=== PATIENT | female | born 1980 | race Hispanic/Latino ===

== ENCOUNTER 2021-10-30 21:07 | Emergency (ER) | payer OTHER, SELFPAY ==
--- NOTE | 2021-10-30 21:12 | ED_ITS ---
HPI - Eye Problem General Chief complaint: Eye Problems Stated complaint: Both eyes infected x2 weeks Time Seen by Provider: 10/30/21 21:11 History of Present Illness HPI Narrative: 41-year-old female nonsmoker presents with a chief complaint of 2 weeks of slowly worsening upper lid pain and swelling. She has a history of styes and had been using warm compresses over the past 2 weeks but her symptoms have been gradually worsening and she now has for painful. Eyes, 2 on each of her upper eyelids. She was able to squeeze a small amount of pus out of 1 on her left eye earlier today. She went to see her primary care provider who prescribed a few prescriptions including oral antibiotics and even drops. She was unable to get these filled at her local pharmacy and was told that if she could not get her antibiotics that she would need to present to the emergency department for t reatment. She denies any blurred vision, redness of her skull air, drainage or other symptoms such as fever, chills nor nausea or vomiting. Related Data Previous Rx's Medication Instructions Recorded doxycycline hyclate 100 mg capsule 100 mg PO BID #20 cap 10/30/21 Allergies Allergy/AdvReac Type Severity Reaction Status Date / Time lamotrigine Allergy Verified 10/30/21 21:26 Penicillins Allergy Verified 10/30/21 21:26 Review of Systems Review of Systems Narrative: GENERAL: See HP HEENT: See HP RESPIRATORY: Denies dyspnea, cough, wheezing, hemoptysis, sputum. CARDIOVASCULAR: Denies chest pain, palpitations, orthopnea, edema, GASTROINTESTINAL: Denies nausea, vomiting, abdominal pain, diarrhea, constipation, melena. : Denies dysuria, frequency, incontinence, hematuria, urinary retention. MUSCULOSKELETAL: denies weakness, joint pain, or bony pain SKIN: See HP NEUROLOGIC: Denies weakness, headache, numbness, change in speech, confusion, seizures, incoordination. PSYCHIATRIC: No concerning psychosocial issues. 12 point review of systems is negative except for those stated above Patient History Social History Smoking Status: Never smoker Exam Narrative Exam Narrative: GEN: AOx3 and in mild distress EYES: Upper lids bilaterally with minimal edema and erythema. To palpate warty alum in bilateral upper lids, no fluctuance or drainage noted. Pupils are equal, round, and reactive to light and accommodation. Extraoccular muscles are intact bilaterally. There is no subconjunctival hemorrhage or exudate. CHEST: Lungs are clear to auscultation bilaterally and free of wheezes, rales, or rhonchi. Heart rate is regular rhythm, there are no murmurs, clicks, rubs, or gallops. There is no chest wall tenderness. ABD: Abdomen is soft and nontender. There is no guarding or rebound. Bowel sounds are normal in all 4 quadrants. There is no mass or organomegaly. EXT: Full painless ROM of all extremities with no loss of sensation or strength. SKIN: Warm, pink, and dry. No erythema or rash Initial Vital Signs Initial Vital Signs: Vital Signs Temperature 98 F 10/30/21 21:26 Pulse Rate 78 10/30/21 21:26 Respiratory Rate 18 10/30/21 21:26 Blood Pressure 146/78 H 10/30/21 21:26 Pulse Oximetry 100 10/30/21 21:26 Course Orders Ordered: Discontinued Medications Doxycycline Hyclate (Doxycycline Hyclate 100 Mg Tablet) 100 mg PO NOW ONE Stop: 10/30/21 21:25 Last Admin: 10/30/21 21:34 Dose: 100 mg Documented by: CATHY Ketorolac Tromethamine (Ketorolac 30 Mg/Ml Vial) 30 mg IM NOW ONE Stop: 10/30/21 21:25 Last Admin: 10/30/21 21:34 Dose: 30 mg Documented by: CATHY Vital Signs Vital signs: Vital Signs - 8 hr 10/30/21 21:26 Temperature 98 F Pulse Rate 78 Respiratory Rate 18 Blood Pressure 146/78 H Pulse Oximetry 100 Discharge Plan Departure Patient Disposition: Home Clinical Impression: Hordeolum, Blepharitis Instructions: Hordeolum Activity Restrictions/Additional Instructions: *You have been diagnosed with [bilateral. Eyes with possible early and mild blepharitis. No evidence of conjunctivitis *What to do: *Please continue to take your regular medications as directed. [ ] New medication prescriptions sent to your pharmacy: [ ] [x ] New medication written as a paper prescription [ ] No new medications given *Please follow up with your primary care provider in 2-3 days, call for an appointment. Let them know you were seen in the Emergency Department and that we ask that you be seen in follow up. We will electronically transmit a record of today's note if your PCP is in our system *If you do not have a primary care provider please contact the [facility] Resource line at [phone]. They will ask some questions about your medical history and help get you set up with a doctor in the community. *Return to Emergency Department if you should have any new, worsening or concerning symptoms, such as [fever greater than 101 F, shaking chills, worsening pain, persistent vomiting or other bothersome symptoms] Prescriptions: New doxycycline hyclate 100 mg capsule 100 mg PO BID Qty: 20 0RF
[2021-10-30 21:26] VITALS: BP 146/78; PULSE 78; RESP 18; TEMP 36.6; O2SAT 100; BMI 31.1
[2021-10-30] MEDS: KETOROLAC 30 MG/ML VIAL IM (21:34)
[2021-10-30] MEDS: DOXYCYCLINE HYCLATE 100 MG TABLET PO (21:34)
== END 2021-10-30 22:25 | disposition home or self-care (01) ==
PROVIDERS: Emergency Provider Emergency Medicine
DX: H00.014 Hordeolum externum left upper eyelid (principal); H00.011 Hordeolum externum right upper eyelid; Z88.0 Allergy status to penicillin
CPT/HCPCS: 96372; 99283; J1885